=== PATIENT | female | born 1995 | race African-American/Black ===

== ENCOUNTER 2022-11-24 12:08 | Emergency (ER) | payer BC ==
[~2022-11-24] VITALS: Ht 152.4 cm; Wt 138.6 kg
[~2022-11-24 12:08] MED LIST: CLEOCIN HC150 MG/CAP PO; NAPROSYN500 MG PO; ROXICODONE 55 MG/TAB PO
[2022-11-24 13:46] LABS: BASO % 0.2 % (0.0-2.0); EOS % 0.1 % (0.0-4.0); GRAN # 10.7 K/mm3 (1.4-6.5); GRAN % 75.3 % (42.2-75.2); HEMATOCRIT 41.7 % (37.0-47.0); LYMPH # 2.9 K/mm3 (1.2-3.4); LYMPH % 20.5 % (20.0-51.0); MEAN CELL VOLUME 82 fl (80.0-100.0); MEAN CORPUSCULAR HEMOGLOBIN 27 pg (27-31); MEAN CORPUSCULAR HGB CONC 34 g/dl (33.0-37.0); MEAN PLATELET VOLUME 9.9 fl (7.4-10.4); MONO # 0.5 K/mm3 (0.1-0.6); MONO % 3.5 % (1.7-9.3); PLATELET COUNT 338 K/mm3 (130-400); RED BLOOD COUNT 5.11 M/mm3 (4.10-5.30); REDCELL DISTRIBUTION WIDTH-CV 13.6 % (11.5-14.5)
[2022-11-24 14:07] LABS: BILIRUBIN,TOTAL 0.5 mg/dL (0.2-1.2); CALCIUM 9.7 mg/dL (8.4-10.2); CREATININE, serum 0.7 mg/dL (0.57-1.11); POTASSIUM 3.8 mmol/L (3.5-4.5); TOTAL PROTEIN 7.8 gm/dL (6.2-8.1)
[2022-11-24 14:16] LABS: ALBUMIN 3.7 gm/dL (3.5-5.0)
[2022-11-24 15:11] VITALS: BP 108/94; PULSE 88; TEMP 97.7
== END 2022-11-24 15:17 | disposition home or self-care (01) ==
LOC: COL.ER 12:08
PROVIDERS: Personal Emergency Response Attendant
DX: R55 Syncope and collapse (principal); R19.7 Diarrhea, unspecified; R51.9 Headache, unspecified; D72.829 Elevated white blood cell count, unspecified; R20.2 Paresthesia of skin; R11.10 Vomiting, unspecified; F17.210 Nicotine dependence, cigarettes, uncomplicated; Z28.310 Unvaccinated for COVID-19
CPT/HCPCS: J7030